=== PATIENT | male | born 1945 | race Caucasian/White ===

== ENCOUNTER 2017-01-14 17:49 | Emergency (ER) | payer MEDICARE ==
[~2017-01-14] VITALS: Ht 190.5 cm; Wt 113.6 kg
[2017-01-14 17:52] VITALS: TEMP 97.1
[2017-01-14] MEDS ORDERED: MSIR30 MG PO (18:08)
[2017-01-14] MEDS ORDERED: PERCOCET 325 MG1 TAB PO (18:09)
[2017-01-14] MEDS ORDERED: NEURONTIN600 MG/TAB PO (18:09)
[2017-01-14] MEDS ORDERED: LIORESAL20 MG PO (18:10)
[2017-01-14] MEDS ORDERED: MEVACOR10 MG PO (18:11)
[2017-01-14 18:53] VITALS: BP 124/58; PULSE 86
== END 2017-01-14 18:56 | disposition home or self-care (01) ==
LOC: COL.ER 17:49
DX: T83.098A Other mechanical complication of other urinary catheter, initial encounter (principal); Z98.890 Other specified postprocedural states
CPT/HCPCS: C1769